=== PATIENT | female | born 1995 | race Hispanic/Latino ===

== ENCOUNTER 2018-08-10 17:53 | Observation (INO) | payer SELFPAY ==
[~2018-08-10] VITALS: Ht 147.3 cm; Wt 49.5 kg
[2018-08-10] MEDS ORDERED: ONDANSETRON HCL INJ 2MG/ML 2ML 2 MG/ML VIAL IV STA (18:20)
[2018-08-10] MEDS ORDERED: SODIUM CHLORIDE 0.9% 1000ML 1,000 ML IV SCH (18:30)
[2018-08-10] MEDS ORDERED: ONDANSETRON HCL INJ 2MG/ML 2ML 2 MG/ML VIAL ONE (19:14)
--- NOTE | 2018-08-10 21:03 | Diagnostic Imaging Report ---
EXAM: CT Abdomen and Pelvis WITH contrast INDICATION: Abdominal pain COMPARISON: None. TECHNIQUE: Abdomen and pelvis were scanned utilizing a multidetector helical scanner from the lung base to the pubic symphysis after administration of IV contrast. Coronal and sagittal reformations were obtained. Dose modulation, iterative reconstruction, and/or weight based adjustment of the mA/kV was utilized to reduce the radiation dose to as low as reasonably achievable. Routine protocol was performed. Scan was performed when during portal venous phase. IV CONTRAST: 100 mL of Isovue-370 ORAL CONTRAST: Gastroview COMPLICATIONS: None RADIATION DOSE: Total DLP: 369.41 mGy*cm Estimated effective dose: (DLP x 0.015 x size factor) mSv CTDIvol has been reviewed. It is below the limits set by the Radiation Protocol Committee (RPC). FINDINGS: LINES and TUBES: None. LOWER THORAX: Unremarkable HEPATOBILIARY: No focal hepatic lesions. No biliary ductal dilation. GALLBLADDER: No radio-opaque stones or sludge. No wall thickening. SPLEEN: No splenomegaly. PANCREAS: No focal masses or ductal dilatation. ADRENALS: No adrenal nodules KIDNEYS/URETERS: Kidneys enhance symmetrically. No hydronephrosis. No cystic or solid mass lesions. No stones. GI TRACT: No abnormal distention or evidence of bowel obstruction. Ascending colon wall thickening. Appendix is mildly distended up to 7 mm, demonstrating mucosal hyperenhancement. No surrounding inflammation. PELVIC ORGANS/BLADDER: Unremarkable. LYMPH NODES: No lymphadenopathy. VESSELS: Unremarkable. PERITONEUM / RETROPERITONEUM: No free air or fluid. BONES: Unremarkable. SOFT TISSUES: Unremarkable. IMPRESSION: Ascending colon wall thickening, suspicious for infectious/inflammatory colitis. The appendix is also mildly distended, demonstrating mucosal hyperenhancement without surrounding inflammation. This could be part of the infectious/inflammatory colitis. Early appendicitis is less likely, although cannot be entirely excluded. Findings discussed with Dr. Martin at 9:00 PM, on 08/10/2018. Signed by: Dr. Geronimo Joyce MD on 08/10/2018 9:00 PM
--- OUTSIDE RECORDS SUMMARY | 2018-08-10 21:41 | XMS REPORT ---
Author Author [facility] Address Unknown Phone Unavailable Care Team Providers [facility] Director Name Role Phone Yuli MARTIN Unavailable Unavailable Problems This patient has no known problems. Allergies, Adverse Reactions, Alerts This patient has no known allergies or adverse reactions. Medications This patient has no known medications. Results Test Description Test Time Test Comments Text Results Atomic Results Result Comments CT ABD/PEL WITH CONTRAST-HOPD 2018-08-10 20:51:00 [place] [address] Patient Name: SWETHA ELLISON MR #: [id number] : 1995 Age/Sex: 22/F Req #: [id number] Adm Physician: Ordered by: UYEN MARTIN MD Report #: [id number] Location: [facility] Room/Bed: Procedure: [id number] HOPD/CT ABD/PEL WITH CONTRAST-HOPD Exam Date: 08/10/18 Exam Time: 2021 REPORT STATUS: Signed EXAM: CT Abdomen and Pelvis WITH contrast INDICATION: Abdominal pain COMPARISON: None. TECHNIQUE: Abdomen and pelvis were scanned utilizing a multidetector helical scanner from the lung base to the pubic symphysis after administration of IV contrast. Coronal and sagittal reformations were obtained. Dose modulation, iterative reconstruction, and/or weight based adjustment of the mA/kV was utilized to reduce the radiation dose to as low as reasonably achievable. Routine protocol was performed. Scan was performed when during portal venous phase. IV CONTRAST: 100 mL of Isovue-370 ORAL CONTRAST: Gastroview COMPLICATIONS: None RADIATION DOSE: Total DLP: 369.41 mGy*cm Estimated effective dose: (DLP x 0.015 x size factor) mSv CTDIvol has been reviewed. It is below the limits set by the Radiation Protocol Committee (RPC). FINDINGS: LINES and TUBES: None. LOWER THORAX: Unremarkable HEPATOBILIARY: No focal hepatic lesions. No biliary ductal dilation. GALLBLADDER: No radio-opaque stones or sludge. No wall thickening. SPLEEN: No splenomegaly. PANCREAS: No focal masses or ductal dilatation. ADRENALS: No adrenal nodules KIDNEYS/URETERS: Kidneys enhance symmetrically. No hydronephrosis. No cystic or solid mass lesions. No stones. GI TRACT: No abnormal distention or evidence of bowel obstruction. Ascending colon wall thickening. Appendix is mildly distended up to 7 mm, demonstrating mucosal hyperenhancement. No surrounding inflammation. PELVIC ORGANS/BLADDER: Unremarkable. LYMPH NODES: No lymphadenopathy. VESSELS: Unremarkable. PERITONEUM / RETROPERITONEUM: No free air or fluid. BONES: Unremarkable. SOFT TISSUES: Unremarkable. IMPRESSION: Ascending colon wall thickening, suspicious for infectious/inflammatory colitis. The appendix is also mildly distended, demonstrating mucosal hyperenhancement without surrounding inflammation. This could be part of the infectious/inflammatory colitis. Early appendicitis is less likely, although cannot be entirely excluded. Findings discussed with Dr. Martin at 9:00 PM, on 08/10/2018. Signed by: Dr. Geronimo Banks MD on 08/10/2018 9:00 PM Dictated By: GERONIMO BANKS MD 99 Transcribed By: AMILCAR on 08/10 COPY TO: UYEN MARTIN MD
[2018-08-10] MEDS ORDERED: ONDANSETRON HCL INJ 2MG/ML 2ML 2 MG/ML VIAL IV PRN (21:45)
[2018-08-10] MEDS ORDERED: MORPHINE SULFATE INJ 4 MG/ML INJ 1ML IV PRN (21:45)
[2018-08-10 22:30] VITALS: BP 98/63
--- NOTE | 2018-08-10 22:30 | NUR ---
Pt admitted to room 288. Dx: Acute Colitis, r/o Appendicitis. Alert and orient to name, place, time, and situation , "I'm at hospital because I started having stomach pains. In the ER they did a CT and it showed inflammation". VSS. PERRLA. Mild RLQ abdominal pain upon touch. BS active x4 quads. Last BM 08/10, soft, brown, mod. Denies SOB, lungs CTA. +2 LE pulses. Ambulatory steady. Skin warm and intact. Oriented to room. Call carpio within reach. Bed low and locked. Bed alarm on. Will continue to monitor.
[2018-08-10 23:00] VITALS: BP 98/63
[2018-08-10 23:09] VITALS: BP 98/63
[2018-08-10] MEDS: PIPER-TAZ 3.375 GM / NS 50ML IV SCH (23:42)
[2018-08-10] MEDS: SODIUM CHLORIDE 0.9% 1000ML 1,000 ML IV SCH (23:42)
[2018-08-11] VITALS (7 sets, daily range): BP systolic 97–109; BP diastolic 52–61
[2018-08-11] MEDS: SODIUM CHLORIDE 0.9% 1000ML 1,000 ML IV SCH ×3 (03:30→15:00)
[2018-08-11 05:59] LABS: BASOPHILS % 0.2 % (0.0-1.0); EOSINOPHILS # (AUTO) 0.1 (0.0-0.4); EOSINOPHILS % 0.7 % (0.0-6.0); HEMATOCRIT 37.2 % (34.2-44.1); HEMOGLOBIN 12.6 g/dL (12.0-16.0); LYMPHOCYTES # (AUTO) 2.6 (1.0-3.2); LYMPHOCYTES % 20.6 % (18.0-39.1); MEAN CORPUSCULAR HEMOGLOBIN 30.1 pg (28-32); MEAN CORPUSCULAR HGB CONC 33.9 g/dL (31-35); MEAN CORPUSCULAR VOLUME 88.8 fL (81-99); MONOCYTES # (AUTO) 0.9 (0.2-0.8); MONOCYTES % 7.4 % (4.4-11.3); NEUTROPHILS % 70.8 % (38.7-80.0); PLATELET COUNT 220 x10e3/uL (140-360); RED BLOOD COUNT 4.19 x10e6/uL (3.6-5.1); RED CELL DISTRIBUTION WIDTH 11.9 % (11.7-14.4)
[2018-08-11] MEDS: PIPER-TAZ 3.375 GM / NS 50ML IV SCH ×3 (06:23→22:30)
--- NOTE | 2018-08-11 07:00 | NUR ---
Pt lying quietly in bed. No distress noted. Report given to morning nurse.
--- NOTE | 2018-08-11 07:30 | NUR ---
RECD PT IN BED SLEEPING ,NO S/S DISCOMFORT
[2018-08-11 09:19] LABS: BLOOD UREA NITROGEN 8 mg/dL (7-26); BUN/CREATININE RATIO 12 (6-25); CALCIUM 8.8 mg/dL (8.4-10.2); CARBON DIOXIDE 23 mmol/L (22-29); CHLORIDE 110 mmol/L (98-107); CREATININE, SERUM 0.65 mg/dL (0.57-1.11); EST GLOMERULAR FILTRATION RATE > 60 ML/MIN (60-); GLUCOSE 96 mg/dL (74-118); SODIUM 139 mmol/L (136-145)
[2018-08-11] MEDS ORDERED: ACETAMINOPHEN 325 MG TAB PO PRN (11:45)
--- NOTE | 2018-08-11 15:47 | History and Physical ---
CHIEF COMPLAINT: The patient comes in with abdominal pain. HISTORY OF PRESENTING ILLNESS: A 22-year-old female with no prior medical history, was in usual state of health until the patient started with right lower quadrant pain, described of 01/09. The patient came in and was found to have inflamed colon and also inflamed appendix. The patient was admitted to the hospital for IV antibiotics and possible surgical evaluation and surgery for appendicitis. PAST MEDICAL HISTORY: Nonsignificant. PAST SURGICAL HISTORY: Noncontributory. REVIEW OF SYSTEMS: Negative for chest pain. Positive for some nausea. Negative for vomiting. No diarrhea. Positive for abdominal pain. No constipation. No rectal bleeding. No hematochezia. No hematemesis. No diplopia. No blurry vision. ALLERGIES: NO KNOWN DRUG ALLERGIES. PHYSICAL EXAMINATION: HEENT: Normocephalic, atraumatic. No icterus present. CVS: S1, S2 normal. Regular rate and rhythm. ABDOMEN: Nontender. At this time, no rebound, no guarding present. EXTREMITIES: No clubbing, no cyanosis, no edema. LABORATORY VALUES: Initial white count is 12.71, left shift of 9.0 present neutrophil. Chemistries were essentially not done. ASSESSMENT: Questionable appendicitis, colitis of the right upper ascending colon. PLAN: Plan is to continue the patient on IV antibiotics, IV fluids, so will be monitored by Surgery. The patient does not present with any guarding or rebound at this time, possibly continue watching the patient. Dr. De Leon is on consult. MD DEBORAH Yi/MODL /[id number]
--- NOTE | 2018-08-11 17:13 | Consultation ---
DATE OF CONSULTATION: 08/11/2018 CHIEF COMPLAINT: Abdominal pain. HISTORY: The patient is a 22-year-old female 1-day history of pain right lower quadrant with nausea and vomiting. No diarrhea. Actually, she complained of constipation. She denies fever or chills. No family members with the same symptom. PAST MEDICAL HISTORY: Unremarkable. ALLERGIES: SHE HAD NO DRUGS ALLERGIES. PAST SURGICAL HISTORY: No previous surgery. SOCIAL HABITS: No smoking, alcohol abuse. REVIEW OF SYSTEMS: No chest pain. No shortness of breath or cough. PHYSICAL EXAMINATION: VITAL SIGNS: Stable. Afebrile. GENERAL: She is awake, alert, in mild discomfort. HEENT: Sclera anicteric. NECK: Supple. LUNGS: Clear. HEART: Regular rate and rhythm. ABDOMEN: Soft with guarding in the right lower quadrant without rebound. LABORATORY DATA: White cell count is 12, creatinine of 0.6. CT scan show inflammations involving the ascending colon with mildly dilated appendix without inflammation. ASSESSMENT: Ascending colitis. Low suspicion for appendicitis. PLAN: Clear liquid diet. Continue IV antibiotics. Chepe De Leon MD DNVickie/MODL /[id number]
--- NOTE | 2018-08-11 17:24 | NUR ---
PT UP IN BED ,DENIES PAIN,TOLERATING CLEAR LIQUID WELL
--- NOTE | 2018-08-11 19:05 | NUR ---
Completed bedside rounds with morning nurse. Pt alert and orient to name. Lying in bed HOB 45 degrees. Denies pain at this time. Call carpio within reach. Will continue to monitor.
[2018-08-12] VITALS (7 sets, daily range): BP systolic 91–106; BP diastolic 50–72
[2018-08-12 06:07] LABS: BASOPHILS % 0.3 % (0.0-1.0); EOSINOPHILS # (AUTO) 0.1 (0.0-0.4); EOSINOPHILS % 1.8 % (0.0-6.0); HEMATOCRIT 35.8 % (34.2-44.1); HEMOGLOBIN 12.3 g/dL (12.0-16.0); LYMPHOCYTES # (AUTO) 2.6 (1.0-3.2); LYMPHOCYTES % 38.8 % (18.0-39.1); MEAN CORPUSCULAR HEMOGLOBIN 30.1 pg (28-32); MEAN CORPUSCULAR HGB CONC 34.4 g/dL (31-35); MEAN CORPUSCULAR VOLUME 87.5 fL (81-99); MONOCYTES # (AUTO) 0.5 (0.2-0.8); MONOCYTES % 6.7 % (4.4-11.3); NEUTROPHILS # (AUTO) 3.5 (2.1-6.9); NEUTROPHILS % 52.3 % (38.7-80.0); PLATELET COUNT 211 x10e3/uL (140-360); RED BLOOD COUNT 4.09 x10e6/uL (3.6-5.1); RED CELL DISTRIBUTION WIDTH 11.9 % (11.7-14.4)
[2018-08-12] MEDS: PIPER-TAZ 3.375 GM / NS 50ML IV SCH ×2 (06:30→13:00)
[2018-08-12 06:37] LABS: ALANINE AMINOTRANSFERASE 14 IU/L (0-55); ALBUMIN 3.4 g/dL (3.5-5.0); ALBUMIN/GLOBULIN RATIO 1.2 (0.8-2.0); ALKALINE PHOSPHATASE 62 IU/L (40-150); ANION GAP 12.7 mmol/L (8-16); BLOOD UREA NITROGEN 6 mg/dL (7-26); BUN/CREATININE RATIO 10 (6-25); CALCIUM 8.7 mg/dL (8.4-10.2); CARBON DIOXIDE 19 mmol/L (22-29); CHLORIDE 112 mmol/L (98-107); CREATININE, SERUM 0.62 mg/dL (0.57-1.11); EST GLOMERULAR FILTRATION RATE > 60 ML/MIN (60-); GLUCOSE 73 mg/dL (74-118); POTASSIUM 3.7 mmol/L (3.5-5.1); SODIUM 140 mmol/L (136-145)
--- NOTE | 2018-08-12 06:51 | NUR ---
Pt awake and alert to name. Sitting in bed HOB 60 degrees. Denies pain at this time. No acute distress noted. Call carpio within reach.
--- NOTE | 2018-08-12 07:04 | NUR ---
RECEIVED PATIENT RESTING IN BED. NO ACUTE DISTRESS NOTED. PATIENT DENIES PAIN OR DISCOMFORT. FAMILY AT BEDSIDE. CALL LIGHT WITHIN REACH. BED IN THE LOWEST POSITION.
--- NOTE | 2018-08-12 09:19 | NUR ---
GAVE RESOURCE PACKET FOR COMMUNITY INFORMATION FOR PT TO FOLLOW UP UPON DISCHARGE. INFORMATION DISCUSSED PAGE BY PAGE FOR PT KNOWLEDGE OF INFORMATION AVAILABLE IN THE COMMUNITY FOR SELF PAY/LOW COST PATIENTS.
[2018-08-12] MEDS: SODIUM CHLORIDE 0.9% 1000ML 1,000 ML IV SCH (13:00)
--- NOTE | 2018-08-12 19:08 | NUR ---
REPORT GIVEN TO ONCOMING NURSE. WALKING ROUNDS DONE. PATIENT IS RESTING IN BED. FAMILY AT BEDSIDE. CALL LIGHT WITHIN REACH. BED IN THE LOWEST POSITION.
--- NOTE | 2018-08-12 19:19 | NUR ---
PT IS RESTING IN BED WITH FAMILY AT BEDSIDE. NO RESPIRATORY DISTRESS NOTED. BED IN THE LOWEST POSITION, LOCKED, AND CALL LIGHT WITHIN REACH. WILL CONTINUE TO MONITOR.
--- NOTE | 2018-08-12 20:53 | NUR ---
PT WAS WHEELED OF THE UNIT WITH ALL OF HER BELONGS. NO RESPIRATORY DISTRESS NOTED. PT EDUCATED ON MEDICATION COMPLIANCE AND DISCHARGE INSTRUCTIONS. PER PT DISCHARGE INSTRUCTION UNDERSTOOD.
--- NOTE | 2018-08-12 23:09 | Progress Note ---
DATE: SUBJECTIVE: The patient is here for ascending colitis and also possible pancreatitis. The yield for appendicitis is very low. The patient is currently on Zosyn mg and the patient has improved considerably. Pain in the right lower quadrant has markedly decreased. OBJECTIVE: VITAL SIGNS: The patient's vital signs today temperature is 97.4, pulse is 77, and blood pressure is 95/54. HEENT: Normocephalic and atraumatic. Anicteric. CARDIOVASCULAR SYSTEM: S1, S2 normal. Regular rhythm. ABDOMEN: Tenderness in the right lower quadrant has markedly decreased. Positive for good bowel sounds. EXTREMITIES: No clubbing, no cyanosis, no edema. LABORATORY VALUES: The patient's white count is 6.72, hemoglobin of 12.3. Chemistries: Sodium of 140, potassium 3.7, BUN of 6, creatinine of 0.62. ASSESSMENT: Ascending colitis: We will keep the patient in hospital. Continue with Zosyn. Possible discharge tomorrow with Cipro and Flagyl. Continue to monitor the patient. Possible discharge tomorrow again. Dr. De Leon has seen the patient appendicitis is low and possibly no surgery required at this time. MD DEBORAH Yi/VIKRAML /[id number]
== END 2018-08-12 20:54 | disposition home or self-care (01) ==
LOC: FSED 17:53 → ERHOLD 21:38 → MED/SURG3 22:31
PROVIDERS: ADMIT Family Medicine; ATTEND Family Medicine
DX: K52.9 Noninfective gastroenteritis and colitis, unspecified (principal)
CPT/HCPCS: 36415 ×2; 74177; 80048; 80053; 81003; 81025; 85025 ×2; 99284; G0378 ×3; J2405; J2543 ×3; J7030 ×3